=== PATIENT | female | born 1950 | race Caucasian/White ===

== ENCOUNTER 2019-12-01 09:30 | Emergency (ER) | payer MEDICARE ==
[~2019-12-01 09:30] MED LIST: BIFI4CAP PO; CALC600T12 PO; CHOL100024 PO; CYAN100070 PO; EFF25T PO; FENT1PAT7 TOP; GABA-530 PO; LACT-28 PO; MULT-1085 PO; OMEP20TA5 PO; gas x PO; trazadone PO
[2019-12-01] MEDS ORDERED: normal saline 1000ML IV soln IVB ONE (10:15)
[2019-12-01] MEDS ORDERED: morphine 4 MG/ML inj SYRINge IV PRN (10:15)
[2019-12-01] MEDS ORDERED: ondansetron/PF 4mg/2ml inj IV ONE (10:15)
[2019-12-01 11:04] LABS: BASOPHILS # (AUTO) 0.1 X10'3 (0-0.2); BASOPHILS % (AUTO) 1.1 % (0-1); EOSINOPHILS # (AUTO) 0.1 X10'3 (0-0.9); EOSINOPHILS % (AUTO) 1.9 % (0-6); HEMATOCRIT 43.9 % (35.0-45.0); HEMOGLOBIN 14.5 g/dl (12.0-16.0); LYMPHOCYTES # (AUTO) 1.9 X10'3 (1.1-4.8); LYMPHOCYTES % (AUTO) 26.2 % (21-51); MEAN CORPUSCULAR HEMOGLOBIN 30.1 PG (27.0-31.0); MEAN PLATELET VOLUME 8.2 FL (7.4-10.4); MONOCYTES # (AUTO) 0.6 X10'3 (0-0.9); MONOCYTES % (AUTO) 8.5 % (2-12); NEUTROPHILS # (AUTO) 4.5 X10'3 (1.8-7.7); NEUTROPHILS % (AUTO) 62.3 % (42-75); PLATELET COUNT 217 X10'3 (140-440); RED BLOOD COUNT 4.83 X10'6 (4.20-5.60); RED CELL DISTRIBUTION WIDTH 14.9 % (11.5-14.5); WHITE BLOOD COUNT 7.2 X10'3 (4.5-11.0)
[2019-12-01 11:17] VITALS: BP 163/82
[2019-12-01 11:19] LABS: ALANINE AMINOTRANSFERASE 24 U/L (12-78); ALBUMIN 3.3 G/DL (3.4-5.0); ALBUMIN/GLOBULIN RATIO 1.1 (1.1-1.5); ALKALINE PHOSPHATASE 57 IU/L (46-116); ANION GAP 7 (8-16); ASPARTATE AMINO TRANSFERASE 22 U/L (10-37); BILIRUBIN,TOTAL 0.4 MG/DL (0.1-1.0); BLOOD UREA NITROGEN 16 MG/DL (7-18); BUN/CREATININE RATIO 25.4 (6.6-38.0); CALCIUM 8.6 MG/DL (8.5-10.1); CHLORIDE 106 MMOL/L (99-107); CREATININE 0.63 MG/DL (0.40-0.90); GLUCOSE 95 MG/DL (70-104); POTASSIUM 3.8 MMOL/L (3.5-5.1); SODIUM 142 MMOL/L (135-145); TOTAL CARBON DIOXIDE 28.9 MMOL/L (24-32); TOTAL PROTEIN 6.3 G/DL (6.4-8.2); eGFR > 90 ML/MIN
[2019-12-01] MEDS ORDERED: ketorolac trometh. 30mg/ml inj. IV ONE (11:45)
[2019-12-01 12:02] LABS: CLARITY,URINE CLOUDY (Clear); COLOR,URINE STRAW (Yellow); GLUCOSE, URINE NEGATIVE (Neg); KETONES,URINE NEGATIVE (Neg); LEUKOCYTE ESTERASE ,URINE LARGE (Neg); NITRITES, URINE NEGATIVE (Neg); OCCULT BLOOD,URINE LARGE (Neg); PH,URINE 5.5 (4.8-8.0); PROTEIN,URINE NEGATIVE (Neg); UROBILINOGEN,URINE 0.2 E.U/dL (0.2-1.0)
[2019-12-01 12:08] LABS: UA COLLECTION TYPE CLN CATCH MIDSTREAM
[2019-12-01 12:23] LABS: RBC,URINE 50-100 /HPF (0-2); WBC,URINE 50-100 /HPF (0-4)
[2019-12-01 12:24] LABS: BACTERIA,URINE FEW /HPF (Neg); MUCUS STRANDS NONE SEEN /LPF (Neg); SQUAMOUS EPITHELIAL CELL,UR FEW /LPF (FEW)
[2019-12-01] MEDS ORDERED: CEPH250T PO (12:35)
== END 2019-12-01 13:08 | disposition home or self-care (01) ==
LOC: ER 09:30
DX: N39.0 Urinary tract infection, site not specified (principal); I10 Essential (primary) hypertension; K21.9 Gastro-esophageal reflux disease without esophagitis; Z79.2 Long term (current) use of antibiotics; Z79.899 Other long term (current) drug therapy
CPT/HCPCS: 36415; 76775; 80053; 81001; 85025; 87088; 96374; 96375; 99284; J1885; J2405; J7030

== ENCOUNTER 2019-12-25 11:25 | Emergency (ER) | payer MEDICARE ==
[~2019-12-25] VITALS: Ht 165.1 cm; Wt 49.0 kg
[2019-12-25 12:01] LABS: CLARITY,URINE CLOUDY (Clear); COLOR,URINE BROWN (Yellow); GLUCOSE, URINE NEGATIVE (Neg); KETONES,URINE TRACE mg/dl (Neg); LEUKOCYTE ESTERASE ,URINE MODERATE (Neg); NITRITES, URINE POSITIVE (Neg); OCCULT BLOOD,URINE LARGE (Neg); PH,URINE 6.5 (4.8-8.0); PROTEIN,URINE >=300 mg/dl (Neg)
[2019-12-25 12:04] LABS: UA COLLECTION TYPE CLN CATCH MIDSTREAM
[2019-12-25 12:07] LABS: BASOPHILS % (AUTO) 0.2 % (0-1); EOSINOPHILS # (AUTO) 0.2 X10'3 (0-0.9); EOSINOPHILS % (AUTO) 1.9 % (0-6); HEMATOCRIT 44.9 % (35.0-45.0); LYMPHOCYTES # (AUTO) 1.7 X10'3 (1.1-4.8); LYMPHOCYTES % (AUTO) 15.5 % (21-51); MEAN CORPUSCULAR HEMOGLOBIN 30.3 PG (27.0-31.0); MEAN CORPUSCULAR HGB CONC 33.4 g/dL (33.0-36.5); MEAN CORPUSCULAR VOLUME 90.6 FL (78-98); MEAN PLATELET VOLUME 8.1 FL (7.4-10.4); MONOCYTES # (AUTO) 0.7 X10'3 (0-0.9); MONOCYTES % (AUTO) 6.1 % (2-12); NEUTROPHILS # (AUTO) 8.4 X10'3 (1.8-7.7); NEUTROPHILS % (AUTO) 76.3 % (42-75); PLATELET COUNT 219 X10'3 (140-440); RED BLOOD COUNT 4.96 X10'6 (4.20-5.60); RED CELL DISTRIBUTION WIDTH 14.3 % (11.5-14.5); WHITE BLOOD COUNT 11.1 X10'3 (4.5-11.0)
[2019-12-25 12:10] LABS: BACTERIA,URINE 3+ /HPF (Neg); MUCUS STRANDS NONE SEEN /LPF (Neg); RBC,URINE TNTC /HPF (0-2); SQUAMOUS EPITHELIAL CELL,UR FEW /LPF (FEW); WBC,URINE TNTC /HPF (0-4)
[2019-12-25 12:15] LABS: ALANINE AMINOTRANSFERASE 25 U/L (12-78); ALBUMIN 3.6 G/DL (3.4-5.0); ALBUMIN/GLOBULIN RATIO 1.1 (1.1-1.5); ALKALINE PHOSPHATASE 70 IU/L (46-116); ANION GAP 8 (8-16); ASPARTATE AMINO TRANSFERASE 26 U/L (10-37); BILIRUBIN,TOTAL 0.7 MG/DL (0.1-1.0); BLOOD UREA NITROGEN 13 MG/DL (7-18); BUN/CREATININE RATIO 19.1 (6.6-38.0); CALCIUM 9.1 MG/DL (8.5-10.1); CHLORIDE 102 MMOL/L (99-107); CREATININE 0.68 MG/DL (0.40-0.90); GLUCOSE 176 MG/DL (70-104); SODIUM 139 MMOL/L (135-145); TOTAL CARBON DIOXIDE 29.4 MMOL/L (24-32); eGFR 85 ML/MIN
[2019-12-25] MEDS ORDERED: levoFLOXACIN 750MG TABLET PO ONE (12:30)
[2019-12-25] MEDS ORDERED: phenazopyridine 100mg tablet PO ONE (12:30)
[2019-12-25] MEDS ORDERED: LEVO750T21 PO (12:38)
[2019-12-25 12:44] VITALS: BP 150/85
== END 2019-12-25 13:05 | disposition home or self-care (01) ==
LOC: ER 11:26
DX: N39.0 Urinary tract infection, site not specified (principal); R31.9 Hematuria, unspecified; I10 Essential (primary) hypertension; K21.9 Gastro-esophageal reflux disease without esophagitis; Z79.899 Other long term (current) drug therapy
CPT/HCPCS: 36415; 80053; 81001; 85025; 87077; 87088; 87186; 99283

== ENCOUNTER 2021-08-18 10:11 | Emergency (ER) | payer MEDICARE, OTHER ==
[~2021-08-18] VITALS: Ht 162.6 cm; Wt 54.5 kg
[~2021-08-18 10:11] MED LIST changes: +CALC-1099 PO; -CALC600T12 PO; -EFF25T PO; +VENL25TA48 PO
[2021-08-18 11:29] LABS: BASOPHILS # (AUTO) 0.1 X10'3 (0-0.2); BASOPHILS % (AUTO) 0.7 % (0-1); EOSINOPHILS # (AUTO) 0.1 X10'3 (0-0.9); EOSINOPHILS % (AUTO) 0.6 % (0-6); HEMATOCRIT 47.7 % (35.0-45.0); HEMOGLOBIN 16.3 g/dl (12.0-16.0); LYMPHOCYTES # (AUTO) 1.4 X10'3 (1.1-4.8); LYMPHOCYTES % (AUTO) 16.5 % (21-51); MEAN CORPUSCULAR HEMOGLOBIN 31.1 PG (27.0-31.0); MEAN CORPUSCULAR HGB CONC 34.3 g/dL (33.0-36.5); MEAN CORPUSCULAR VOLUME 90.8 FL (78-98); MEAN PLATELET VOLUME 7.7 FL (7.4-10.4); MONOCYTES # (AUTO) 0.7 X10'3 (0-0.9); MONOCYTES % (AUTO) 7.7 % (2-12); NEUTROPHILS # (AUTO) 6.5 X10'3 (1.8-7.7); NEUTROPHILS % (AUTO) 74.5 % (42-75); PLATELET COUNT 329 X10'3 (140-440); RED BLOOD COUNT 5.25 X10'6 (4.20-5.60); RED CELL DISTRIBUTION WIDTH 13.9 % (11.5-14.5); WHITE BLOOD COUNT 8.7 X10'3 (4.5-11.0)
[2021-08-18 11:43] LABS: ALANINE AMINOTRANSFERASE 56 U/L (12-78); ALBUMIN 3.9 G/DL (3.4-5.0); ALKALINE PHOSPHATASE 81 IU/L (46-116); ANION GAP 12 (8-16); ASPARTATE AMINO TRANSFERASE 38 U/L (10-37); BILIRUBIN,DIRECT 0.3 MG/DL (0-0.3); BILIRUBIN,TOTAL 0.8 MG/DL (0.1-1.0); BLOOD UREA NITROGEN 9 MG/DL (7-18); BUN/CREATININE RATIO 10.2 (6.6-38.0); CALCIUM 8.9 MG/DL (8.5-10.1); CHLORIDE 104 MMOL/L (99-107); CREATININE 0.88 MG/DL (0.40-0.90); GLUCOSE 169 MG/DL (70-104); LIPASE < 50 U/L (73-393); POTASSIUM 3.8 MMOL/L (3.5-5.1); SODIUM 142 MMOL/L (135-145); TOTAL CARBON DIOXIDE 25.7 MMOL/L (24-32); TOTAL PROTEIN 7.7 G/DL (6.4-8.2); eGFR 63 ML/MIN
[2021-08-18] MEDS ORDERED: ondansetron 4mg rapidly disintigrating tab PO ONE (13:20)
[2021-08-18] MEDS ORDERED: iohexol 350MG/ML 100ml bottle IV ONE (13:33)
[2021-08-18 14:12] VITALS: BP 141/77
[2021-08-18] MEDS ORDERED: ONDA4TAB6 PO (14:15)
--- NOTE | 2021-08-18 14:35 | NUR ---
pt received her [employer] vaccines x2 and her booster on 08-07-21
[2021-08-19] MEDS ORDERED: PROC-8 PO (09:02)
== END 2021-08-18 14:35 | disposition home or self-care (01) ==
LOC: ER 10:12
DX: B34.9 Viral infection, unspecified (principal); Z20.822 Contact with and (suspected) exposure to COVID-19; R11.2 Nausea with vomiting, unspecified; R06.02 Shortness of breath; R53.83 Other fatigue; I10 Essential (primary) hypertension; K21.9 Gastro-esophageal reflux disease without esophagitis; Z87.440 Personal history of urinary (tract) infections; Z87.442 Personal history of urinary calculi; Z85.9 Personal history of malignant neoplasm, unspecified; Z79.899 Other long term (current) drug therapy
CPT/HCPCS: 36415; 71045; 80048; 80076; 83690; 85025; 99284; U0003; U0005; Q9967

== ENCOUNTER 2021-08-19 05:17 | Emergency (ER) | payer MEDICARE, OTHER ==
[~2021-08-19] VITALS: Ht 162.6 cm; Wt 54.5 kg
[~2021-08-19 05:17] MED LIST changes: +ONDA4TAB6 PO
[2021-08-19] MEDS ORDERED: proCHLORperazine 10mg tablet PO ONE (07:45)
[2021-08-19] MEDS ORDERED: normal saline 1000ML IV soln IVB ONE (07:45)
[2021-08-19] MEDS ORDERED: iohexol 350MG/ML 100ml bottle IV ONE (08:06)
--- NOTE | 2021-08-19 08:47 | NUR ---
PATIENT TO CT.
[2021-08-19] MEDS ORDERED: PROC-8 PO (09:02)
[2021-08-19 10:02] VITALS: BP 137/76
== END 2021-08-19 10:49 | disposition home or self-care (01) ==
LOC: ER 05:17
DX: Z02.89 Encounter for other administrative examinations (principal); I26.99 Other pulmonary embolism without acute cor pulmonale; R51.9 Headache, unspecified; R11.0 Nausea; I10 Essential (primary) hypertension; K21.9 Gastro-esophageal reflux disease without esophagitis; Z87.442 Personal history of urinary calculi; Z87.440 Personal history of urinary (tract) infections; Z85.9 Personal history of malignant neoplasm, unspecified; Z79.899 Other long term (current) drug therapy
CPT/HCPCS: 71275; 93005; 99285; J7030; Q9967; Q0164

== ENCOUNTER 2021-08-29 10:31 | Emergency (ER) | payer MEDICARE, OTHER ==
[~2021-08-29] VITALS: Ht 162.6 cm; Wt 54.0 kg
[~2021-08-29 10:31] MED LIST changes: +PROC-8 PO
[2021-08-29 10:48] VITALS: BP 120/72
[2021-08-29 11:34] LABS: BASOPHILS # (AUTO) 0.1 X10'3 (0-0.2); BASOPHILS % (AUTO) 0.8 % (0-1); EOSINOPHILS # (AUTO) 0.1 X10'3 (0-0.9); EOSINOPHILS % (AUTO) 1.9 % (0-6); HEMATOCRIT 43.3 % (35.0-45.0); HEMOGLOBIN 14.9 g/dl (12.0-16.0); LYMPHOCYTES # (AUTO) 1.2 X10'3 (1.1-4.8); LYMPHOCYTES % (AUTO) 16.2 % (21-51); MEAN CORPUSCULAR HEMOGLOBIN 31.3 PG (27.0-31.0); MEAN CORPUSCULAR HGB CONC 34.4 g/dL (33.0-36.5); MEAN CORPUSCULAR VOLUME 90.9 FL (78-98); MEAN PLATELET VOLUME 7.7 FL (7.4-10.4); MONOCYTES # (AUTO) 0.4 X10'3 (0-0.9); MONOCYTES % (AUTO) 5.2 % (2-12); NEUTROPHILS # (AUTO) 5.4 X10'3 (1.8-7.7); NEUTROPHILS % (AUTO) 75.9 % (42-75); PLATELET COUNT 234 X10'3 (140-440); RED BLOOD COUNT 4.77 X10'6 (4.20-5.60); RED CELL DISTRIBUTION WIDTH 13.8 % (11.5-14.5); WHITE BLOOD COUNT 7.1 X10'3 (4.5-11.0)
[2021-08-29 11:49] LABS: ALANINE AMINOTRANSFERASE 27 U/L (12-78); ALBUMIN 3.6 G/DL (3.4-5.0); ALKALINE PHOSPHATASE 61 IU/L (46-116); ANION GAP 9 (8-16); ASPARTATE AMINO TRANSFERASE 26 U/L (10-37); BILIRUBIN,TOTAL 0.6 MG/DL (0.1-1.0); BLOOD UREA NITROGEN 16 MG/DL (7-18); BUN/CREATININE RATIO 16.7 (6.6-38.0); CALCIUM 9.2 MG/DL (8.5-10.1); CHLORIDE 103 MMOL/L (99-107); CREATININE 0.96 MG/DL (0.40-0.90); GLUCOSE 151 MG/DL (70-104); POTASSIUM 4.1 MMOL/L (3.5-5.1); SODIUM 140 MMOL/L (135-145); TOTAL CARBON DIOXIDE 28.1 MMOL/L (24-32); TOTAL PROTEIN 7.2 G/DL (6.4-8.2); eGFR 57 ML/MIN
== END 2021-08-29 17:29 | disposition left against medical advice (07) ==
LOC: ER 10:32
DX: G89.29 Other chronic pain (principal); M25.552 Pain in left hip; I10 Essential (primary) hypertension; K21.9 Gastro-esophageal reflux disease without esophagitis; Z79.899 Other long term (current) drug therapy; Z87.440 Personal history of urinary (tract) infections; Z87.442 Personal history of urinary calculi; Z85.9 Personal history of malignant neoplasm, unspecified
CPT/HCPCS: 36415; 74176; 80053; 85025; 85610; 85651; 99284

== ENCOUNTER 2024-02-15 11:06 | Emergency (ER) | payer MEDICARE, OTHER ==
[~2024-02-15] VITALS: Ht 162.6 cm; Wt 48.2 kg
[~2024-02-15 11:06] MED LIST changes: -LACT-28 PO; +OMEP20TA43 PO; -OMEP20TA5 PO; +[UNRECOGNIZED DRUG - CODE] PO
[2024-02-15 11:08] VITALS: BP 185/95; PULSE 107; RESP 16; TEMP 98; O2SAT 97
[2024-02-15 11:44] LABS: BILIRUBIN,URINE SMALL (Neg); CLARITY,URINE CLOUDY (Clear); COLOR,URINE YELLOW (Yellow); GLUCOSE, URINE 100 mg/dl (Neg); KETONES,URINE TRACE mg/dl (Neg); LEUKOCYTE ESTERASE ,URINE LARGE (Neg); NITRITES, URINE POSITIVE (Neg); OCCULT BLOOD,URINE LARGE (Neg); PH,URINE 7.5 (4.8-8.0); PROTEIN,URINE >=300 mg/dl (Neg)
[2024-02-15 12:13] LABS: UA COLLECTION TYPE NON-SPECIFIED
[2024-02-15 12:15] LABS: WBC,URINE TNTC /HPF (0-4)
[2024-02-15 12:16] LABS: BACTERIA,URINE 4+ /HPF (Neg); MUCUS STRANDS FEW /LPF (Neg); RBC,URINE 50-100 /HPF (0-2); SQUAMOUS EPITHELIAL CELL,UR FEW /LPF (FEW); WBC CLUMPS,URINE FEW /HPF (NEGATIVE)
== END 2024-02-15 15:16 | disposition left against medical advice (07) ==
LOC: ER 11:06
DX: N39.9 Disorder of urinary system, unspecified (principal); Z53.21 Procedure and treatment not carried out due to patient leaving prior to being seen by health care provider
CPT/HCPCS: 81001; 87077; 87088; 87186; 99281

== ENCOUNTER 2024-07-30 23:46 | Emergency (ER) | payer MEDICARE, OTHER ==
[~2024-07-30] VITALS: Ht 162.6 cm; Wt 49.2 kg
[2024-07-30 23:51] VITALS: PULSE 100; TEMP 97.8
[2024-07-31] MEDS ORDERED: ONDA-245 PO (00:49)
[2024-07-31] MEDS ORDERED: HYDR-3965 PO (00:49)
[2024-07-31] MEDS: ondansetron 4mg rapidly disintigrating tab PO ONE (01:10)
[2024-07-31] MEDS: HYDROcodone/acetaminophen 5mg/325mg tablet PO ONE (01:11)
[2024-07-31 01:14] VITALS: RESP 16
== END 2024-07-31 01:15 | disposition home or self-care (01) ==
LOC: ER 23:47
DX: S42.212A Unspecified displaced fracture of surgical neck of left humerus, initial encounter for closed fracture (principal); I10 Essential (primary) hypertension; K21.9 Gastro-esophageal reflux disease without esophagitis; Z79.899 Other long term (current) drug therapy; W19.XXXA Unspecified fall, initial encounter; Y93.89 Activity, other specified; Y92.89 Other specified places as the place of occurrence of the external cause; Y99.8 Other external cause status
CPT/HCPCS: 73030; 99283; A4565

== ENCOUNTER 2024-11-05 04:56 | Inpatient (IN) | payer MEDICARE, OTHER ==
[~2024-11-05] VITALS: Ht 162.6 cm; Wt 50.0 kg
[~2024-11-05 04:56] MED LIST changes: -BIFI4CAP PO; +CEFD300C3 PO; +DENO60DI SUBCUT; +DICL-212 PO; +LACT1TAB15 PO; +LEVO50TA PO; +LOPE2CAP PO; +LOSA50TA64 PO; +METR-159 PO; +OLAN5TAB75 PO; +ONDA-103 PO; -ONDA4TAB6 PO; -PROC-8 PO; +VENL150C58 PO; -VENL25TA48 PO; -[UNRECOGNIZED DRUG - CODE] PO; -gas x PO; -trazadone PO
[2024-11-05 06:45] LABS: ALANINE AMINOTRANSFERASE 14 U/L (12-78); ALBUMIN 2.1 G/DL (3.4-5.0); ALBUMIN/GLOBULIN RATIO 0.6 (1.1-1.5); ALKALINE PHOSPHATASE 94 IU/L (46-116); ANION GAP 8 (8-16); ASPARTATE AMINO TRANSFERASE 13 U/L (10-37); BILIRUBIN,TOTAL 0.4 MG/DL (0.1-1.0); BLOOD UREA NITROGEN 7 MG/DL (7-18); CALCIUM 8.8 MG/DL (8.5-10.1); CHLORIDE 108 MMOL/L (99-107); GLUCOSE 85 MG/DL (70-104); POTASSIUM 3.4 MMOL/L (3.5-5.1); SODIUM 144 MMOL/L (135-145); TOTAL CARBON DIOXIDE 27.9 MMOL/L (24-32); TOTAL PROTEIN 5.4 G/DL (6.4-8.2); eCRCL 54 ML/MIN; eGFR 81 ML/MIN
[2024-11-05 06:50] LABS: PRO BRAIN NATRIURETIC PEPTIDE 875 PG/ML (0-450)
[2024-11-05 06:54] LABS: ETHANOL < 10 MG/DL (<10)
[2024-11-05 07:26] LABS: BASOPHILS # (AUTO) 0.1 X10'3 (0-0.2); BASOPHILS % (AUTO) 0.7 % (0-1); EOSINOPHILS # (AUTO) 0.1 X10'3 (0-0.9); EOSINOPHILS % (AUTO) 1.3 % (0-6); HEMATOCRIT 37.5 % (35.0-45.0); HEMOGLOBIN 12.4 g/dl (12.0-16.0); LYMPHOCYTES # (AUTO) 1.2 X10'3 (1.1-4.8); LYMPHOCYTES % (AUTO) 13.9 % (21-51); MEAN CORPUSCULAR HEMOGLOBIN 30.5 PG (27.0-31.0); MEAN CORPUSCULAR HGB CONC 33.1 g/dL (33.0-36.5); MEAN CORPUSCULAR VOLUME 92.2 FL (78-98); MEAN PLATELET VOLUME 7.1 FL (7.4-10.4); MONOCYTES # (AUTO) 0.5 X10'3 (0-0.9); MONOCYTES % (AUTO) 6.2 % (2-12); NEUTROPHILS # (AUTO) 6.8 X10'3 (1.8-7.7); NEUTROPHILS % (AUTO) 77.9 % (42-75); PLATELET COUNT 319 X10'3 (140-440); RED BLOOD COUNT 4.06 X10'6 (4.20-5.60); RED CELL DISTRIBUTION WIDTH 15.7 % (11.5-14.5); WHITE BLOOD COUNT 8.7 X10'3 (4.5-11.0)
[2024-11-05] MEDS: haloperidol lactate 5mg/ml inj IM ONE (08:11)
[2024-11-05] MEDS ORDERED: morphine 2 MG/ML inj. syringe IV PRN (09:55)
[2024-11-05] MEDS ORDERED: HYDROcodone/acetaminophen 5mg/325mg tablet PO PRN (09:55)
[2024-11-05] MEDS ORDERED: acetaminophen 325mg tablet PO PRN (09:55)
[2024-11-05] MEDS ORDERED: potassium Cl 40MEQ/1/2NS 520ml 520 ML IV PRN (09:55)
[2024-11-05] MEDS ORDERED: ondansetron/PF 4mg/2ml inj IV PRN (09:55)
[2024-11-05] MEDS ORDERED: magnesium hydroxide 30ml (MOM) UD suspension PO PRN (09:55)
[2024-11-05] MEDS ORDERED: mag hydrox/Alum hydrox/simeth 30ml oral suspension PO PRN (09:55)
[2024-11-05] MEDS ORDERED: potassium Cl 20 mEq SR tablet PO PRN (09:55)
[2024-11-05] MEDS: ringers solution, lacted 1,000 ML IV SCH (10:34)
[2024-11-05] MEDS: CefTRIAXone 2gm/D5W 50ml BAG 50 ML IV ONE (10:35)
[2024-11-05] MEDS: OLANZapine **IM** 10 mg inj. IM ONE (11:28)
[2024-11-05] MEDS: LORazepam 2 mg/ml vial IV ONE (12:23)
[2024-11-05] MEDS: morphine 4 MG/ML inj SYRINge IV ONE (12:24)
[2024-11-05 14:00] VITALS: BP 156/66; PULSE 74; RESP 16; TEMP 96.9; O2SAT 97
[2024-11-05] MEDS: morphine 2 MG/ML inj. syringe IV PRN (15:47)
[2024-11-05] MEDS: piperacillin/tazo 3.375gm/50ml 50 ML IV SCH (15:47)
[2024-11-05] MEDS: OLANZapine 2.5MG tablet PO SCH (15:48)
[2024-11-05] MEDS: docusate sod 100mg capsule PO SCH (19:30)
[2024-11-05] MEDS: K and/or MAG REPLACEMENT MC SCH (19:30)
[2024-11-05] MEDS: pantoprazole 40 MG vial IV SCH (19:42)
[2024-11-05] MEDS: potassium Cl 20 mEq SR tablet PO PRN (19:42)
[2024-11-05 20:00] VITALS: RESP 16; O2SAT 97
[2024-11-05 22:00] VITALS: BP 149/76; PULSE 104; RESP 16; TEMP 97.5; O2SAT 98
[2024-11-05] MEDS: HYDROcodone/acetaminophen 10/325mg tab PO PRN (22:07)
[2024-11-06] MEDS: LORazepam 2 mg/ml vial IV ONE (04:23)
[2024-11-06 06:00] VITALS: BP 147/84; PULSE 94; RESP 16; TEMP 97.1; O2SAT 97
[2024-11-06 06:37] LABS: BASOPHILS # (AUTO) 0.1 X10'3 (0-0.2); BASOPHILS % (AUTO) 0.6 % (0-1); EOSINOPHILS # (AUTO) 0.2 X10'3 (0-0.9); EOSINOPHILS % (AUTO) 1.9 % (0-6); HEMATOCRIT 39.4 % (35.0-45.0); HEMOGLOBIN 12.8 g/dl (12.0-16.0); LYMPHOCYTES # (AUTO) 1.4 X10'3 (1.1-4.8); LYMPHOCYTES % (AUTO) 16.1 % (21-51); MEAN CORPUSCULAR HEMOGLOBIN 30.6 PG (27.0-31.0); MEAN CORPUSCULAR HGB CONC 32.5 g/dL (33.0-36.5); MEAN CORPUSCULAR VOLUME 94.2 FL (78-98); MEAN PLATELET VOLUME 7.1 FL (7.4-10.4); MONOCYTES # (AUTO) 0.7 X10'3 (0-0.9); MONOCYTES % (AUTO) 7.5 % (2-12); NEUTROPHILS # (AUTO) 6.5 X10'3 (1.8-7.7); NEUTROPHILS % (AUTO) 73.9 % (42-75); PLATELET COUNT 255 X10'3 (140-440); RED BLOOD COUNT 4.19 X10'6 (4.20-5.60); RED CELL DISTRIBUTION WIDTH 15.7 % (11.5-14.5); WHITE BLOOD COUNT 8.8 X10'3 (4.5-11.0)
[2024-11-06] MEDS ORDERED: LORazepam 2 mg/ml vial IV PRN (07:25)
[2024-11-06 08:15] LABS: ALANINE AMINOTRANSFERASE 12 U/L (12-78); ALBUMIN 1.9 G/DL (3.4-5.0); ALBUMIN/GLOBULIN RATIO 0.7 (1.1-1.5); ALKALINE PHOSPHATASE 86 IU/L (46-116); ANION GAP 6 (8-16); ASPARTATE AMINO TRANSFERASE 15 U/L (10-37); BILIRUBIN,TOTAL 0.6 MG/DL (0.1-1.0); BLOOD UREA NITROGEN 7 MG/DL (7-18); BUN/CREATININE RATIO 10.6 (10.0-20.0); CALCIUM 8.2 MG/DL (8.5-10.1); CHLORIDE 107 MMOL/L (99-107); CREATININE 0.66 MG/DL (0.40-0.90); GLUCOSE 72 MG/DL (70-104); MAGNESIUM 1.4 MG/DL (1.5-2.4); POTASSIUM 3.9 MMOL/L (3.5-5.1); SODIUM 143 MMOL/L (135-145); TOTAL CARBON DIOXIDE 29.7 MMOL/L (24-32); TOTAL PROTEIN 4.8 G/DL (6.4-8.2); eCRCL 57 ML/MIN; eGFR 87 ML/MIN
[2024-11-06] MEDS: levoTHYROXINE 25mcg tablet PO SCH (08:27)
[2024-11-06 08:30] VITALS: RESP 16; O2SAT 97
[2024-11-06 09:47] LABS: BILIRUBIN,URINE NEGATIVE (Neg); CLARITY,URINE CLEAR (Clear); COLOR,URINE YELLOW (Yellow); GLUCOSE, URINE NEGATIVE (Neg); KETONES,URINE NEGATIVE (Neg); LEUKOCYTE ESTERASE ,URINE NEGATIVE (Neg); NITRITES, URINE NEGATIVE (Neg); OCCULT BLOOD,URINE NEGATIVE (Neg); PH,URINE 6.5 (4.8-8.0); PROTEIN,URINE NEGATIVE (Neg); UROBILINOGEN,URINE 0.2 E.U/dL (0.2-1.0)
[2024-11-06 10:00] VITALS: BP 157/75; PULSE 86; RESP 16; TEMP 97.6; O2SAT 98
[2024-11-06 10:01] LABS: UA COLLECTION TYPE NON-SPECIFIED
[2024-11-06] MEDS: acetaminophen 325mg tablet PO PRN (10:16)
[2024-11-06] MEDS: magnesium sulf-water 2g/50mL 50 ML IV PRN (12:18)
[2024-11-06] MEDS: magnesium sulf-water 4G/100mL 100 ML IV PRN (16:00)
== END 2024-11-06 17:48 | disposition home or self-care (01) | DRG 391 ==
LOC: ER 04:57 → ED HOLD 09:59 → ORTHO 4S 14:15
PROVIDERS: ADMIT Nurse Practitioner Family; ATTEND Nurse Practitioner Family
PROC: CF141ZZ Planar Nuclear Medicine Imaging of Gallbladder using Technetium 99m (Tc-99m) (ICD-10-PCS; principal; 2024-11-05)
DX: A09 Infectious gastroenteritis and colitis, unspecified (principal); E43 Unspecified severe protein-calorie malnutrition; Z68.1 Body mass index [BMI] 19.9 or less, adult; E87.6 Hypokalemia; E03.9 Hypothyroidism, unspecified; K21.9 Gastro-esophageal reflux disease without esophagitis; Z85.3 Personal history of malignant neoplasm of breast; F17.210 Nicotine dependence, cigarettes, uncomplicated; Z85.79 Personal history of other malignant neoplasms of lymphoid, hematopoietic and related tissues; Z83.3 Family history of diabetes mellitus; Z90.710 Acquired absence of both cervix and uterus; Z90.11 Acquired absence of right breast and nipple; Z87.442 Personal history of urinary calculi
CPT/HCPCS: 36415; 71045; 76700; 78226; 80053; 80320; 81003; 82140; 83690; 83735; 83880; 84145; 84484; 85025; 86870; 86885; 86900; 86901; 86905; 87081; 93005; 99285; A6213; A6250; A9537; G0378; J0696; J1630; J2060; J2270; J2470; J2543; J3475; J3490; J7120

== ENCOUNTER 2024-11-12 07:24 | Emergency (ER) | payer MEDICARE, OTHER ==
[~2024-11-12] VITALS: Ht 162.6 cm; Wt 51.4 kg
[~2024-11-12 07:24] MED LIST changes: -LOPE2CAP PO
[2024-11-12 08:37] LABS: BASOPHILS # (AUTO) 0.1 X10'3 (0-0.2); BASOPHILS % (AUTO) 0.9 % (0-1); EOSINOPHILS # (AUTO) 0.2 X10'3 (0-0.9); EOSINOPHILS % (AUTO) 2.7 % (0-6); HEMATOCRIT 32.1 % (35.0-45.0); HEMOGLOBIN 10.7 g/dl (12.0-16.0); LYMPHOCYTES # (AUTO) 1.6 X10'3 (1.1-4.8); LYMPHOCYTES % (AUTO) 25.1 % (21-51); MEAN CORPUSCULAR HGB CONC 33.2 g/dL (33.0-36.5); MEAN CORPUSCULAR VOLUME 93.4 FL (78-98); MONOCYTES # (AUTO) 0.6 X10'3 (0-0.9); MONOCYTES % (AUTO) 9.9 % (2-12); NEUTROPHILS # (AUTO) 3.9 X10'3 (1.8-7.7); NEUTROPHILS % (AUTO) 61.4 % (42-75); PLATELET COUNT 374 X10'3 (140-440); RED BLOOD COUNT 3.44 X10'6 (4.20-5.60); RED CELL DISTRIBUTION WIDTH 16.8 % (11.5-14.5); WHITE BLOOD COUNT 6.3 X10'3 (4.5-11.0)
[2024-11-12 08:43] LABS: ALANINE AMINOTRANSFERASE 8 U/L (12-78); ALBUMIN/GLOBULIN RATIO 0.6 (1.1-1.5); ALKALINE PHOSPHATASE 73 IU/L (46-116); ANION GAP 7 (8-16); ASPARTATE AMINO TRANSFERASE 13 U/L (10-37); BILIRUBIN,TOTAL 0.3 MG/DL (0.1-1.0); BLOOD UREA NITROGEN 15 MG/DL (7-18); BUN/CREATININE RATIO 20.3 (10.0-20.0); CALCIUM 8.2 MG/DL (8.5-10.1); CHLORIDE 112 MMOL/L (99-107); CREATININE 0.74 MG/DL (0.40-0.90); GLUCOSE 81 MG/DL (70-104); LIPASE 23 U/L (16-77); POTASSIUM 3.3 MMOL/L (3.5-5.1); SODIUM 145 MMOL/L (135-145); TOTAL CARBON DIOXIDE 25.7 MMOL/L (24-32); TOTAL PROTEIN 5.1 G/DL (6.4-8.2); eCRCL 52 ML/MIN; eGFR 76 ML/MIN
[2024-11-12] MEDS ORDERED: QUEtiapine 25mg tablet PO SCH (09:30)
[2024-11-12] MEDS: QUEtiapine 25mg tablet PO ONE (09:40)
[2024-11-12 10:20] LABS: BILIRUBIN,URINE NEGATIVE (Neg); GLUCOSE, URINE NEGATIVE (Neg); KETONES,URINE NEGATIVE (Neg); LEUKOCYTE ESTERASE ,URINE NEGATIVE (Neg); NITRITES, URINE POSITIVE (Neg); OCCULT BLOOD,URINE NEGATIVE (Neg); PROTEIN,URINE TRACE mg/dl (Neg); UROBILINOGEN,URINE 0.2 E.U/dL (0.2-1.0)
[2024-11-12 10:24] LABS: PH,URINE 5.5 (4.8-8.0)
[2024-11-12 10:27] LABS: CLARITY,URINE SLIGHTLY CLOUDY (Clear); COLOR,URINE DARK YELLOW (Yellow); UA COLLECTION TYPE FOLEY CATH
[2024-11-12 10:28] LABS: BACTERIA,URINE FEW /HPF (Neg); CAL OXALATE CRYSTALS 3+ /HPF (NEGATIVE); MUCUS STRANDS FEW /LPF (Neg); RBC,URINE 0-2 /HPF (0-2); SQUAMOUS EPITHELIAL CELL,UR NONE SEEN /LPF (FEW); WBC,URINE 0-4 /HPF (0-4)
[2024-11-12 11:05] LABS: URINE AMPHETAMINE SCREEN NEGATIVE (Neg)
[2024-11-12 11:06] LABS: URINE BENZODIAZEPINES SCREEN NEGATIVE (Neg); URINE METHADONE SCREEN NEGATIVE (Neg)
[2024-11-12] MEDS: normal saline 1000ml 1,000 ML IV ONE (11:35)
[2024-11-12] MEDS: diphenhydrAMINE 50 mg/ml inj IV ONE (11:42)
[2024-11-12] MEDS: LORazepam 2 mg/ml vial IV ONE (11:43)
[2024-11-12] MEDS ORDERED: MET0.75G TOP (14:31)
[2024-11-12] MEDS ORDERED: FENT1PAT10 TOP (14:31)
[2024-11-12] MEDS ORDERED: LOPE2TAB25 PO (14:31)
[2024-11-12] MEDS ORDERED: OMEP20TA23 PO (14:40)
[2024-11-12] MEDS ORDERED: GABA-530 PO (14:40)
[2024-11-12] MEDS ORDERED: DICLOFENAC SODIUM 75 MG PO PRN (18:50)
[2024-11-12] MEDS ORDERED: fentaNYL 25MCG/hour patch.TD72 TD SCH (18:50)
[2024-11-12] MEDS ORDERED: loperamide 2mg capsule PO PRN (18:50)
[2024-11-12] MEDS: gabapentin 100mg capsule PO SCH (21:06)
[2024-11-12] MEDS: sulfamethoxazole/trimethoprim DS (800/160mg) tablet PO SCH (21:06)
[2024-11-12] MEDS: fentaNYL 50MCG/HOUR patch.TD72 TD SCH (21:07)
[2024-11-13] MEDS: calcium carbonate 500mg tablet PO SCH (08:45)
[2024-11-13] MEDS: levoTHYROXINE 25mcg tablet PO SCH (08:46)
[2024-11-13] MEDS: multivitamins, therapeutics tablet PO SCH (08:46)
[2024-11-13] MEDS: pantoprazole 40mg Tablet.DR PO SCH (08:46)
[2024-11-13] MEDS: cholecalciferol (vitamin D3) 1,000 unit (25mcg) tablet PO SCH (08:46)
[2024-11-13] MEDS: losartan 50mg tablet PO SCH (08:46)
[2024-11-13] MEDS: venlafaxine XR 75mg capsule (Q24H) PO SCH (08:46)
[2024-11-13 09:22] LABS: URINE AMPHETAMINE SCREEN NEGATIVE (Neg); URINE BARBITUATE SCREEN NEGATIVE (Neg); URINE BENZODIAZEPINES SCREEN NEGATIVE (Neg); URINE CANNABINOID SCREEN NEGATIVE (Neg); URINE COCAINE SCREEN NEGATIVE (Neg); URINE METHADONE SCREEN NEGATIVE (Neg); URINE OPIATE SCREEN NEGATIVE (Neg); URINE PHENCYCLIDINE SCREEN NEGATIVE (Neg)
[2024-11-13 09:27] LABS: C DIFF ANTIGEN NEGATIVE (NEGATIVE); C DIFF SPECIMEN=DIARRHEA? ACCEPTABLE; C DIFFICILE TOXINS A&B NEGATIVE (Neg)
[2024-11-13] MEDS ORDERED: QUET25TA PO (15:41)
[2024-11-13] MEDS: quetiapine 100mg tablet PO ONE (16:15)
[2024-11-13 16:27] VITALS: BP 130/80; PULSE 94; RESP 16; TEMP 98.5; O2SAT 96
[2024-11-13] MEDS ORDERED: quetiapine 100mg tablet PO SCH (21:00)
== END 2024-11-13 16:36 | disposition still patient (30) ==
LOC: ER 07:25
DX: F29 Unspecified psychosis not due to a substance or known physiological condition (principal); R10.84 Generalized abdominal pain; I10 Essential (primary) hypertension; K21.9 Gastro-esophageal reflux disease without esophagitis; Z87.442 Personal history of urinary calculi
CPT/HCPCS: 36415; 71045; 80053; 80305; 81001; 82140; 83690; 85025; 87088; 87324; 87449; 96360; 96372; 99285; C1758; J1200; J2060; J7030; 96361